=== PATIENT | male | born 1975 | race Caucasian/White ===

== ENCOUNTER 2021-09-25 22:56 | Emergency (ER) | payer SELFPAY ==
[2021-09-25 23:06] VITALS: BP 158/80; PULSE 73; TEMP 98.4; BMI 38.0
[2021-09-25] MEDS ORDERED: KETOROLAC TROMETHAMINE 60 MG/2 ML VIAL IM ONE (23:11)
[2021-09-25] MEDS ORDERED: KETOROLAC TROMETHAMINE 60 MG/2 ML VIAL ONE (23:12)
== END 2021-09-25 23:24 | disposition home or self-care (01) ==
LOC: FER 22:56
PROC: 3E0233Z Introduction of Anti-inflammatory into Muscle, Percutaneous Approach (ICD-10-PCS; principal; 2021-09-25)
DX: M79.672 Pain in left foot (principal)
CPT/HCPCS: 73630-TC-LT; 99284-25